=== PATIENT | female | born 1960 | race Caucasian/White ===

== ENCOUNTER → 2016-07-23 | Outpatient (CLI) | payer OTHER ==
[~2016-07-23] VITALS: Ht 157.5 cm; Wt 62.0 kg
[~2016-07-23] MED LIST: ACET1CAP18 PO; BENA25TA3 PO; INSULIN HUMAN REGULAR 1,000 UNITS/10 ML VIAL SQ PRN; LACTATED RINGER'S 1000 ML IV SCH; METOPROLOL TARTRATE 25 MG TAB PO PRN; PROPOFOL 200 MG/20 ML AMP IV ONE; SODIUM CHLORID 0.9% 500 ML IV SCH
[2016-07-23 09:06] VITALS: BP 135/85; PULSE 91; RESP 18; TEMP 98.1; O2SAT 98
--- NOTE | 2016-07-23 10:02 | GIPROC ---
[facility] [address] [facility]. [facility], [address] EGD PROCEDURE REPORT EXAM DATE: 07/23/2016 PATIENT NAME: Ashlie Gonzalez MR#: [id number] BIRTHDATE: 1960 STATUS: outpatient ATTENDING: Stacey Oviedo MD THIRD MATE: Wil Jurado and Yogi Dunn INDICATIONS: The patient is a 56 yr old female here for an EGD due to heartburn. PROCEDURE PERFORMED: EGD w/ biopsy MEDICATIONS: None and Per Anesthesia. ASA CLASS: Class II PHYSICAL EXAM: normal CONSENT: The patient understands the risks and benefits of the procedure and understands that these risks include, but are not limited to: sedation, allergic reaction, infection, perforation and/or bleeding. Alternative means of evaluation and treatment include, among others: physical exam, x-rays, and/or surgical intervention. The patient elects to proceed with this endoscopic procedure. DESCRIPTION OF PROCEDURE: for proper function. Hand hygiene and appropriate measures for infection prevention was taken. After the risks, benefits and alternatives of the procedure were thoroughly explained, Informed consent was verified, confirmed and timeout was successfully executed by the treatment team. The Pentax [id number] and [id number] endoscope was introduced through the mouth and advanced to the second portion of the duodenum. The instrument was slowly withdrawn as the mucosa was fully examined. ESOPHAGUS: The mucosa of the esophagus appeared normal. STOMACH: There was mild gastritis in the gastric antrum. A biopsy was performed. A 1cm hiatal hernia was noted. The stomach otherwise appeared normal. DUODENUM: The duodenal mucosa appeared normal in the duodenal bulb and 2nd part duodenum. Retroflexed views revealed a hiatal hernia The gastroscope was then slowly withdrawn and removed. COMPLICATIONS: There were no complications. IMPRESSIONS: 1. The esophagus appeared normal 2. There was mild gastritis in the gastric antrum; biopsy was performed 3. 1cm hiatal hernia 4. The stomach otherwise appeared normal 5. Normal duodenal mucosa in the duodenal bulb and 2nd part duodenum 6. Retroflexed views revealed a hiatal hernia RECOMMENDATIONS: 1. Await biopsy results. Biopsy results will not be ready for 7-10 days. If you don't hear from us in two weeks, call our office for biopsy results. 2. Anti-reflux regimen 3. Avoid NSAIDS PATIENT CONDITION: stable DISPOSITION: Home REPEAT EXAM: NONE Stacey Oviedo MD eSigned: Stacey Oviedo MD 07/23/2016 10:01 AM cc: Sanjay Elizondo M.D. PATIENT NAME: Ashlie Gonzalez MR#: [id number]
[2016-07-23 10:25] VITALS: TEMP 97.7
--- NOTE | 2016-07-23 10:26 | GIPROC ---
[facility] [address] [facility]. [facility] [place], [address] COLONOSCOPY PROCEDURE REPORT EXAM DATE: 07/23/2016 PATIENT NAME: Ashlie Gonzalez MR #: [id number] BIRTHDATE: 1960 ENDOSCOPIST: Stacey Oviedo MD ORDER #: [id number] INSPECTOR [employer]: Wil Jurado and Yogi Dunn STATUS: outpatient INDICATIONS: The patient is a 56 yr old female here for a colonoscopy due to average risk patient for colon cancer PROCEDURE PERFORMED: Colonoscopy, screening MEDICATIONS: None and Per Anesthesia. PREP QUALITY: excellent PREP TYPE:SuPrep ESTIMATED BLOOD LOSS: None CONSENT: The patient understands the risks and benefits of the procedure and understands that these risks include, but are not limited to: sedation, allergic reaction, infection, perforation and/or bleeding. Alternative means of evaluation and treatment include, among others: physical exam, x-rays, and/or surgical intervention. The patient elects to proceed with this endoscopic procedure. medical equipment was checked for proper function. Hand hygiene and appropriate measures for infection prevention was taken. After the risks, benefits and alternatives of the procedure were thoroughly explained, Informed consent was verified, confirmed and timeout was successfully executed by the treatment team. A digital exam revealed no abnormalities of the rectum, revealed hemorrhoids, and revealed internal hemorrhoids The Pentax [id number] and [id number] endoscope was introduced through the anus and advanced to the cecum, which was identified by both the appendix and ileocecal valve. The instrument was then slowly withdrawn as the colon was fully examined. COLON FINDINGS: The colonic mucosa appeared normal. Mild diverticulosis was noted in the sigmoid colon. Moderate sized internal hemorrhoids were found. Retroflexed views revealed internal hemorrhoids, Retroflexed views revealed small internal hemorrhoids, and Retroflexed views revealed medium internal hemorrhoids The scope was then completely withdrawn from the patient and the procedure terminated. PROCEDURE WITHDRAWAL TIME:6minutes ADVERSE EVENTS: There were no complications. IMPRESSIONS: 1. The colonic mucosa appeared normal 2. Mild diverticulosis was noted in the sigmoid colon 3. Moderate sized internal hemorrhoids 4. Retroflexed views revealed internal hemorrhoids 5. Retroflexed views revealed small internal hemorrhoids 6. Retroflexed views revealed medium internal hemorrhoids 7. Revealed no abnormalities of the rectum 8. Revealed hemorrhoids 9. Revealed internal hemorrhoids RECOMMENDATIONS: High fiber diet RECALL: Return 10 years Colonoscopy Stacey Oviedo MD eSigned: Stacey Oviedo MD 07/23/2016 10:25 AM cc: Sanjay Elizondo M.D. PATIENT NAME: Ashlie Gonzalez MR#: [id number]
[2016-07-23 10:45] VITALS: BP 99/72; PULSE 70; RESP 16; O2SAT 100
--- NOTE | 2016-07-23 14:48 | EKG ---
Date Performed: 07/23/2016 Time Performed: 08:33:57 PTAGE: 56 years EKG: Sinus rhythm NORMAL ECG NO PREVIOUS TRACING DOCTOR: Jaun Giang Interpretating Date/Time 07/23/2016 14:41:59
== END ==
LOC: HEND 08:08
PROVIDERS: ATTEND Internal Medicine Gastroenterology
DX: Z12.11 Encounter for screening for malignant neoplasm of colon (principal); Z80.0 Family history of malignant neoplasm of digestive organs; K44.9 Diaphragmatic hernia without obstruction or gangrene; K57.30 Diverticulosis of large intestine without perforation or abscess without bleeding; K29.70 Gastritis, unspecified, without bleeding; K64.8 Other hemorrhoids; Z01.810 Encounter for preprocedural cardiovascular examination
CPT/HCPCS: 88305; 88307; 88312; 93005